=== PATIENT | female | born 1995 | race Two or more races ===

== ENCOUNTER 2024-04-10 05:35 | Day surgery (SDC) | payer BC, SELFPAY ==
[2024-04-09 12:54] VITALS: BMI 40.0
[2024-04-09 15:50] LABS: Basophils # (Auto) 0.1 Thou/mm3 (0.0-0.2); Basophils % (Auto) 1 % (0-2.5); Eosinophils # (Auto) 0.1 Thou/mm3 (0.0-0.5); Eosinophils % (Auto) 1 % (0-10); Hematocrit 41.4 % (36.0-46.0); Hemoglobin 13.8 g/dL (12.0-16.0); Immature Granulocytes % (Auto) 0 % (0-0); Immature Granulocytes Auto 0.02 Thou/mm3 (0.00-0.00); Lymphocytes # (Auto) 2.5 Thou/mm3 (1.0-4.8); Lymphocytes % (Auto) 29 % (10-50); Mean Corpuscular HGB Conc 33.3 g/dl (31.0-37.0); Mean Corpuscular Hemoglobin 29.5 pg (25.0-35.0); Mean Corpuscular Volume 89 fL (80-100); Monocytes # (Auto) 0.6 Thou/mm3 (0.0-0.8); Monocytes % (Auto) 7 % (0-12); Neutrophils # (Auto) 5.5 Thou/mm3 (1.8-7.7); Neutrophils % (Auto) 62 % (37-80); Nucleated Red Blood Cell % 0 /100 WBC (0); Platelet Count 334 Thou/mm3 (140-440); RDW Standard Deviation 40.5 fL (36.4-46.3); Red Blood Count 4.68 Miln/mm3 (4.00-5.20); White Blood Count 8.8 Thou/mm3 (3.6-11.0)
[2024-04-09 15:55] LABS: HIV (1&2) Antibody Rapid Non-Reactive
[2024-04-09 16:02] LABS: HCG,Qualitative Serum Negative
[2024-04-09 16:39] LABS: Hepatitis A Antibody IgM Non Reactive (Non React); Hepatitis B Core Antibody IgM Non Reactive (Non React); Hepatitis B Surface Antigen Non Reactive (Non React); Hepatitis C Antibody Non Reactive (Non React)
[2024-04-10] VITALS (7 sets, daily range): BP systolic 90–168; BP diastolic 66–104; PULSE 81–104; RESP 14–20; TEMP 36.6–36.8; O2SAT 95–98; BMI 40.8
--- NOTE | 2024-04-10 08:25 | SUR.PHASEI ---
0825 Patient arrived [facility] recovery [facility], on oxygen 8L via oxy mask with an oral airway in place, breathing unlabored, vital signs stable, dressing intact to vaginal area; peripad, no bleeding noted, lung sounds clear upon auscultation, bilateral radial pulses resent when palpated, report received from Rafael BRANDT and Dr. Cantu/Fatmata SRNA
--- NOTE | 2024-04-10 08:51 | PD.GYNPROC ---
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 The potential benefits and risks of the procedure, the likelihood of success, and the problems related to recuperation have been discussed with patient who agrees to proceed. The possible results of nontreatment and significant alternatives to the proposed procedure have also been explained, along with the risks and benefits of the alternatives. Risks and benefits of chosen anesthetic/sedation and possible use of blood/blood products (if appropriate) were discussed.The patient was identified as Rayna Montana and the procedure verified. A time out was held reviewing the patient identifiers, procedure planned and allergies. At this point the procedure was begun. The patient was positioned and prepped in routine fashion in the dorsal lithotomy position using yellowfin stirups. On examination under anesthesia,the uterus was retroverted to a normal size. Bladder was drained by catheter. A weighted speculum was then placed into the patient's posterior vagina. A cely was used to expose the anterior lip of the cervix which was then grasped by a single tooth tenaculum.The cervix was then very easily dilated to a size 6 Hegar dilator. The hysteroscope was then placed under direct visualization. Warm lactated Ringer's was used as a distention medium. The patient's uterus was found to have normal endometrial cavity with IUD impinged onto one of the lateral villegas of the uterus, strings are absent possibly from prior attempt of retrieval at the office. Pictures were taken. Using a hysteroscopic grasper, IUD was slowly pulled making sure the left arm which is impinged in the lateral wall successfully came out. There was minimal bleeding noted and tenaculum was removed. Hemostasis was acheived with a ringed forcep on anterior cervix. Estimated blood loss (ml): 1 Complications: none Surgical staff Operation Date: 04/10/24 07:30 Case Staff Anesthesiologist: Sam Cantu Diagnosis Problem List Completed Was Problem List Reviewed/Reconciled?: Yes
--- NOTE | 2024-04-10 09:15 | SUR.PHASEII ---
0915 Patient meets discharge criteria from recovery, awake and alert, breathing unlabored, vital signs stable, denies pain stating, I'm just having some cramping , dressing intact; no bleeding noted, patient ate a jello; tolerated well, denies nausea, patient able to dress herself into her clothing, discharge instructions given to patient and patients , signed discharge instructions. Patient given all her belongings prior to discharge, transported via wheelchair and left in a private vehicle.
== END 2024-04-10 09:15 | disposition home or self-care (01) ==
PROVIDERS: PCP Family Medicine; Referring Provider Student in an Organized Health Care Education/Training Program; Visit Provider Student in an Organized Health Care Education/Training Program
PROC: 0UJD8ZZ Inspection of Uterus and Cervix, Via Natural or Artificial Opening Endoscopic (ICD-10-PCS; CPT 58555; principal; 2024-04-10 07:30)
DX: Z30.432 Encounter for removal of intrauterine contraceptive device (principal)
CPT/HCPCS: 58562; 36415; 80074; 84703; 85025; 86703; 86850; 86900; 86901; A4217; A4649; J0131; J1885; J2250; J2405; J2704; J2765; J3010; J3490